=== PATIENT | male | born 1960 | race Caucasian/White ===

== ENCOUNTER → 2023-08-22 | Outpatient (CLI) | payer SELFPAY ==
[2023-08-23 16:18] LABS: PSA, Free 0.94 ng/mL; PSA, Free % 20.6 % (.)
== END | disposition home or self-care (01) ==
LOC: LAB 09:55
PROVIDERS: Visit Provider Urology
DX: N40.1 Benign prostatic hyperplasia with lower urinary tract symptoms (principal)
CPT/HCPCS: 36415; 84153; 84154